=== PATIENT | female | born 1970 | race Caucasian/White ===

== ENCOUNTER 2017-02-28 13:51 | Inpatient (IN) | payer BC ==
[~2017-02-28] VITALS: Ht 165.1 cm; Wt 79.0 kg
--- NOTE | 2017-02-28 16:48 | ERD ---
ER Documentation Chief Complaint Date/Time DATE: 02/28/17 TIME: 16:44 Chief Complaint left leg pain since yesterday HPI Patient is a 46-year-old female who presents to the ED with sudden onset of left leg weakness and numbness. 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 She states that she is able to ambulate but feels weak and "that she's going to trip." States that she feels wobbly in her leg and has difficulty controlling her leg. Denies numbness or tingling in her upper legs. Denies bowel or bladder incontinence. Denies falls or trauma. Denies fever or chills, abdominal pain, chest pain. Denies headache or dizziness. ROS All systems reviewed and are negative except as per history of present illness. PMhx/Soc Medical and Surgical Hx: pt denies Medical Hx History of Surgery: Yes (left breast lumpectomy) Anesthesia Reaction: No Hx Neurological Disorder: No Hx Respiratory Disorders: No Hx Cardiac Disorders: No Hx Psychiatric Problems: No Hx Miscellaneous Medical Probl: No Hx Alcohol Use: No Hx Substance Use: No Hx Tobacco Use: No Smoking Status: Never smoker Physical Exam Vitals Vital Signs Date Time Temp Pulse Resp B/P Pulse Ox O2 Delivery O2 Flow Rate FiO2 02/28/17 13:53 99.2 81 18 167/88 99 Physical Exam GENERAL: Well-developed, well-nourished female. Appears in no acute distress. HEAD: Normocephalic, atraumatic. EYES: Pupils are equally reactive bilaterally. EOMs grossly intact. No conjunctival erythema. ENT: Moist mucous membranes. No uvula deviation. No kissing tonsils. No exudates. NECK: Supple. No lymphadenopathy or thyromegaly. No meningismus. negative kernig. negative brudinski. LUNG: Clear to auscultation bilaterally. No rhonchi, wheezing, rales or coarse breath sounds. HEART: Regular rate and rhythm. No murmurs, rubs or gallops. BACK: No midline tenderness. no spinal tenderness. Extremities: Equal pulses bilaterally. No peripheral clubbing, cyanosis or edema. No unilateral leg swelling. NEUROLOGIC: Alert and oriented. Moving all four extremities. unable to passive dorsiflexion, invert or aaron. Normal speech. unSteady gait. cn 2-12 intact with negative romberg test. no pain in joints. SKIN: Normal color. Warm and dry. No rashes or lesions. Capillary refill < 2 seconds Procedures/MDM ER COURSE: I kept the patient and/or family informed of laboratory and diagnostic imaging results throughout the emergency room course. MEDICAL DECISION MAKING: This is a 46 year old female who presents with left leg pain, numbness and tingling x 2 days. Vital signs were reviewed. Patient is afebrile. Patient is not hypoxic. Patient is not toxic or ill-appearing. I consulted with my supervising physician Dr. Chapin who advised to order an MRI lumbar without contrast. I consulted with my supervising physician Dr. valentino reviewed MRI imaging studies and examine patient at bedside. Neuro surgeon Dr. Valentine was called and reviewed MRI imaging over the phone. Patient will be admitted for further evaluation and consult with neurology. Patient is stable at admission. All questions answered. Departure Diagnosis: Primary Impression: Left leg numbness Additional Impression: Numbness and tingling of leg Condition: Stable ABRIL POWERS PA-C Feb 28, 2017 16:48
--- NOTE | 2017-02-28 17:01 | RADRPT ---
PROCEDURE: MR Lumbar Spine without contrast. CLINICAL INDICATION: Back pain. Left leg pain. Weakness. TECHNIQUE: Multiplanar multisequence MRI of the lumbar spine was performed. COMPARISON: No similar studies are submitted for comparison. FINDINGS: There is a normal lumbar lordosis. The vertebral body heights are maintained. There is no destructive osseous lesion. There is no abnormal bone marrow edema. There are Modic type 2 degenerative changes at L4-5. There is disc desiccation at L4-5 and L5-S1. The conus medullaris is at the L1-L2 level. The cauda equina is unremarkable. T12-L1 : There is no disc herniation or spinal canal stenosis. There is mild bilateral facet arthro liliya without bilateral foraminal stenosis. L1-L2 : There is no disc herniation or spinal canal stenosis. There is mild bilateral facet arthrop athy without bilateral foraminal stenosis. L2-L3 : There is a 1 mm broad-based disc bulge and mild bilateral facet arthropathy and ligamentum f lavum infolding without spinal canal stenosis. There is mild to moderate right with mild left forami nal stenosis. L3-L4 : There is a 1 mm broad-based disc bulge with moderate bilateral facet arthropathy and ligamen mati flavum infolding without spinal canal stenosis. There is mild left with mild to moderate right f oraminal stenosis. L4-L5 : There is moderate to severe disc space narrowing. There is a 3 mm broad-based disc osteophyt e complex with moderate bilateral facet arthropathy and ligamentum flavum infolding mildly effacing the bilateral lateral recesses without spinal canal stenosis.. There is mild to moderate right witho ut left foraminal stenosis. L5-S1 : There is a moderate to severe disc space narrowing. There is trace retrolisthesis with a 3 m m circumferential disc bulge with a superimposed 4 mm left subarticular/foraminal disc protrusion wi th associated annular fissure displacing the descending left S1 nerve root. There is moderate bilate ral facet arthropathy and ligamentum flavum infolding with mild spinal canal stenosis. There is mild to moderate left with moderate right foraminal stenosis. The paraspinal musculature are within normal limits. There is mild endometrial fluid which is nonspe cific. There is also a left ovarian cystic lesion. IMPRESSION: 1. L5-S1 trace retrolisthesis with a circumferential disc bulge with a superimposed 4 mm left subar ticular/foraminal disc protrusion displacing the descending left S1 nerve root. There is mild spinal canal stenosis. There is mild to moderate left and moderate right foraminal stenosis. 2. L4-L5 broad-based disc osteophyte complex with mild to moderate right foraminal stenosis. 3. No acute compression fracture or abnormal bone marrow edema. 4. Mild endometrial fluid which is nonspecific. There is also a left ovarian cystic lesion. Ultrasou nd of the pelvis may be performed as clinically warranted given the patient's age. Further findings as detailed above. RPTAT: PP .Jimmy Bartholomew MD, MD Date Time Electronically viewed and signed by .Jimmy Bartholomew MD, on 02/28/2017 17:00 .F/
[2017-02-28 19:16] LABS: BASOPHIL # 0.1 10^3/ul (0.0-0.1); BASOPHILS % 0.5 % (0.0-2.0); EOSINOPHILS # 0.2 10^3/ul (0.0-0.5); EOSINOPHILS % 1.6 % (0.0-7.0); HEMATOCRIT 39.7 % (37.0-47.0); LYMPHOCYTES # 3.8 10^3/ul (0.8-2.9); LYMPHOCYTES % 33.4 % (15.0-51.0); MEAN CORPUSCULAR HEMOGLOBIN 29.3 pg (29.0-33.0); MEAN CORPUSCULAR HGB CONC 32.7 g/dl (32.0-37.0); MEAN CORPUSCULAR VOLUME 89.6 fl (82.0-101.0); MEAN PLATELET VOLUME 8.9 fl (7.4-10.4); MONOCYTE # 0.5 10^3/ul (0.3-0.9); MONOCYTES % 4.7 % (0.0-11.0); NEUTROPHIL # 6.7 10^3/ul (1.6-7.5); NEUTROPHILS % 59.6 % (39.0-77.0); PLATELET COUNT 416 10^3/UL (140-415); RED BLOOD COUNT 4.43 10^6/ul (4.20-5.40); RED CELL DISTRIBUTION WIDTH 12.9 % (11.5-14.5); WHITE BLOOD COUNT 11.3 10^3/ul (4.8-10.8)
--- NOTE | 2017-02-28 19:17 | EN ---
Date/Time of Note Date/Time of Note DATE: 02/28/17 TIME: 19:16 ER Progress Note I have seen and evaluated the patient along with the PA and/or TUBER [employer]PER provider. I agree with the evaluation and plan of care. Please see their documentation for full ER course and evaluation. In short: This is a 46-year-old female presents with left lower extremity weakness and foot drop On exam: Patient has complete inability to dorsiflex left lower extremity. She walks with an unsteady gait. Assessment and plan: Based on MRI imaging of L5-S1 disc intrusion with impingement I believe this is consistent with acute compressive lumbar radiculopathy. No evidence of cauda equina at this time with the patient does have objective weakness. For this reason Dr. Scott, neurosurgery was notified. He recommends hospitalization. No indication for steroids at this point. He will consult on the patient. Basic blood work has been ordered and the patient will be admitted for further management. Accepting care team and consultations: I discussed the current laboratory data, diagnostic imaging and emergency care provided. Admitting team: Dr. Najera Admitting team indication: Insurance directed Consulting services: Neurosurgery spine, ANABELA Knight MD Feb 28, 2017 19:17
[2017-02-28] MEDS ORDERED: ACETAMINOPHEN 325 MG TAB PO PRN ×2 (19:30→23:30)
[2017-02-28] MEDS ORDERED: ONDANSETRON 4 MG INJ IV PRN ×2 (19:30→23:30)
[2017-02-28 19:36] LABS: CALCIUM 9.4 mg/dl (8.4-10.2); CREATININE 0.68 mg/dl (0.44-1.00); POTASSIUM 3.7 mmol/L (3.5-5.1)
[2017-02-28 20:43] VITALS: PULSE 61; TEMP 98.6
[2017-02-28 21:03] VITALS: BP 140/61; RESP 18
[2017-02-28 21:30] VITALS: Ht 165.1 cm; Wt 79.0 kg
--- NOTE | 2017-02-28 23:23 | HP ---
Date/Time of Note Date/Time of Note DATE: 02/28/17 TIME: 23:21 Assessment/Plan VTE Prophylaxis VTE Prophylaxis Intervention: SCD's Assessment/Plan Chief Complaint/Hosp Course This is a 46 year female being admitted to the [facility] for: #1 left lower extremity weakness and foot drop: MRI of the lumbar spine:L5-S1 trace retrolisthesis with a circumferential disc bulge with a superimposed 4 mm left subarticular/foraminal disc protrusion displacing the descending left S1 nerve root. There is mild spinal canal stenosis. There is mild to moderate left and moderate right foraminal stenosis. L4-L5 broad-based disc osteophyte complex with mild to moderate right foraminal stenosis. At the current time will await neurosurgery evaluation which has been initiated by the ED. Will also consult neurology. No urinary incontinence there are no signs of any cauda equina syndrome. PT and OT evaluation. #2 Left ovarian cyst lesion: Currently at this time patient is not complaining abdomen any pelvic pain. Patient can likely follow-up with as an outpatient #3 DVT and GI prophylaxis: SCDs, acid ama Further treatment strategy will be implemented as per the clinical course Problems: HPI/ROS Admit Date/Time Admit Date/Time Feb 28, 2017 at 22:29 Hx of Present Illness Chief complaint: Left leg weakness and numbness Patient is a 46-year-old female who presents to the ED with sudden onset of left leg weakness and numbness. 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 She states that she is able to ambulate but feels weak and "that she's going to trip." States that she feels wobbly in her leg and has difficulty controlling her leg. Of note patient does report that approximately 3 weeks ago she had experience of low back pain after lifting a heavy object. denies numbness or tingling in the thigh area. Denies bowel or bladder incontinence. Denies falls or trauma. Denies fever or chills, abdominal pain, chest pain. Denies headache or dizziness. Allergies: NKDA Medications: none ROS Const: Negative for fever, chills, weight gain or weight loss, fatigue, or diaphoresis Eyes : No pain discharge or redness or change in visual acuity ENT: No pain, sore throat, congestion, congestion, dysphagia or discharge Respiratory: No shortness of breath, cough, sputum, wheezing, or pleuritic pain Cardiovascular: No chest pain, palpitation, PND, or edema GI : no change in appetite, abdominal pain, nausea, vomiting, diarrhea, constipation, or change in the color his stool Genitourinary: No dysuria, hematuria, flank pain , discharge or CVA tenderness Musculoskeletal: As per HPI Skin: No rash, bruising or hives Neuro: As per HPI Endocrine: No polyuria, polydipsia, temperature intolerance Psych: No hallucination, depression, anxiety or suicidal ideation PMH/Family/Social Past Medical History Left breast mass Past Surgical History Left breast lumpectomy Social History Smoking Status: Never smoker Exam/Review of Systems Vital Signs Vitals Vital Signs Date Time Temp Pulse Resp B/P Pulse Ox O2 Delivery O2 Flow Rate FiO2 02/28/17 20:43 98.6 61 16 128/61 98 Room Air Exam Exam General: Patient is well-developed well-nourished The patient is alert oriented -3 lying comfortably in bed. HEENT: Atraumatic, normocephalic. The pupils are equal, round and reactive. Extraocular motor are intact Neck: Supple with full range of motion. No rigidity or meningismus Chest: Nontender Lungs: Clear to auscultation bilaterally no crackles rales or wheezing Heart: Normal S1-S2, Regular rhythm and rate. No murmur, S3, or S4 Abdomen: Soft , nontender, nondistended , bowel sounds are present. No guarding no rebound tenderness , No masses or organomegaly. No costovertebral temporal angle mass Extremities: Left foot drop Neurologic: Normal mental status, speech normal, cranial nerves II through XII are intact, left foot drop with patient dragging her foot on ambulation, unsteady gait secondary to the left foot drop, left lateral lower leg numbness and decreased sensation left lateral foot decreased sensation Muscular skeletal: There does not appear to be any acute tenderness to the lumbar spinal area however she does have some tenderness to palpation over the left paravertebral muscle area as well as pelvic bone Additional Comments PROCEDURE: MR Lumbar Spine without contrast. CLINICAL INDICATION: Back pain. Left leg pain. Weakness. TECHNIQUE: Multiplanar multisequence MRI of the lumbar spine was performed. COMPARISON: No similar studies are submitted for comparison. FINDINGS: There is a normal lumbar lordosis. The vertebral body heights are maintained. There is no destructive osseous lesion. There is no abnormal bone marrow edema. There are Modic type 2 degenerative changes at L4-5. There is disc desiccation at L4-5 and L5-S1. The conus medullaris is at the L1-L2 level. The cauda equina is unremarkable. T12-L1 : There is no disc herniation or spinal canal stenosis. There is mild bilateral facet arthropathy without bilateral foraminal stenosis. L1-L2 : There is no disc herniation or spinal canal stenosis. There is mild bilateral facet arthropathy without bilateral foraminal stenosis. L2-L3 : There is a 1 mm broad-based disc bulge and mild bilateral facet arthropathy and ligamentum flavum infolding without spinal canal stenosis. There is mild to moderate right with mild left foraminal stenosis. L3-L4 : There is a 1 mm broad-based disc bulge with moderate bilateral facet arthropathy and ligamentum flavum infolding without spinal canal stenosis. There is mild left with mild to moderate right foraminal stenosis. L4-L5 : There is moderate to severe disc space narrowing. There is a 3 mm broad- based disc osteophyte complex with moderate bilateral facet arthropathy and ligamentum flavum infolding mildly effacing the bilateral lateral recesses without spinal canal stenosis.. There is mild to moderate right without left foraminal stenosis. L5-S1 : There is a moderate to severe disc space narrowing. There is trace retrolisthesis with a 3 mm circumferential disc bulge with a superimposed 4 mm left subarticular/foraminal disc protrusion with associated annular fissure displacing the descending left S1 nerve root. There is moderate bilateral facet arthropathy and ligamentum flavum infolding with mild spinal canal stenosis. There is mild to moderate left with moderate right foraminal stenosis. The paraspinal musculature are within normal limits. There is mild endometrial fluid which is nonspecific. There is also a left ovarian cystic lesion. IMPRESSION: 1. L5-S1 trace retrolisthesis with a circumferential disc bulge with a superimposed 4 mm left subarticular/foraminal disc protrusion displacing the descending left S1 nerve root. There is mild spinal canal stenosis. There is mild to moderate left and moderate right foraminal stenosis. 2. L4-L5 broad-based disc osteophyte complex with mild to moderate right foraminal stenosis. 3. No acute compression fracture or abnormal bone marrow edema. 4. Mild endometrial fluid which is nonspecific. There is also a left ovarian cystic lesion. Ultrasound of the pelvis may be performed as clinically warranted given the patient's age. Further findings as detailed above. RPTAT: PP .Jimmy Bartholomew MD, MD Date Time Electronically viewed and signed by .Jimmy Bartholomew MD, MD on 02/28/2017 17:00 .F/ CC: ABRIL POWERS PA-C Labs Result Diagram: 02/28/[id number] BHARATH HERR Feb 28, 2017 23:23
[2017-02-28] MEDS ORDERED: HYDROCODONE/APAP (5/325) TAB PO PRN (23:30)
[2017-02-28] MEDS ORDERED: DOCUSATE SODIUM 100 MG CAP PO PRN (23:30)
[2017-02-28] MEDS ORDERED: BISACODYL (EC) 5 MG TAB PO PRN (23:30)
[2017-02-28] MEDS ORDERED: NACL 0.9% 3 ML SYG IV SCH (23:30)
[2017-02-28] MEDS: FAMOTIDINE 20 MG TAB PO SCH (23:55)
[2017-03-01 02:47] VITALS: BP 123/75; RESP 20
[2017-03-01 05:58] LABS: BASOPHIL # 0.1 10^3/ul (0.0-0.1); BASOPHILS % 0.9 % (0.0-2.0); EOSINOPHILS # 0.2 10^3/ul (0.0-0.5); EOSINOPHILS % 2.4 % (0.0-7.0); HEMATOCRIT 36.2 % (37.0-47.0); HEMOGLOBIN 11.8 g/dl (12.0-16.0); LYMPHOCYTES # 2.9 10^3/ul (0.8-2.9); LYMPHOCYTES % 28.2 % (15.0-51.0); MEAN CORPUSCULAR HEMOGLOBIN 29.3 pg (29.0-33.0); MEAN CORPUSCULAR HGB CONC 32.6 g/dl (32.0-37.0); MEAN CORPUSCULAR VOLUME 89.8 fl (82.0-101.0); MEAN PLATELET VOLUME 9.1 fl (7.4-10.4); MONOCYTE # 0.7 10^3/ul (0.3-0.9); MONOCYTES % 6.5 % (0.0-11.0); NEUTROPHIL # 6.3 10^3/ul (1.6-7.5); NEUTROPHILS % 61.7 % (39.0-77.0); PLATELET COUNT 347 10^3/UL (140-415); RED BLOOD COUNT 4.03 10^6/ul (4.20-5.40); RED CELL DISTRIBUTION WIDTH 13.2 % (11.5-14.5); WHITE BLOOD COUNT 10.2 10^3/ul (4.8-10.8)
[2017-03-01 06:44] LABS: ALBUMIN 3.5 g/dl (3.3-4.9); ALBUMIN/GLOBULIN RATIO 1.06; BILIRUBIN,INDIRECT 2.1 mg/dl (0-1.1); BILIRUBIN,TOTAL 2.1 mg/dl (0.2-1.3); CALCIUM 8.9 mg/dl (8.4-10.2); CHOL/HDL RATIO 2.9 RATIO; CREATININE 0.66 mg/dl (0.44-1.00); MAGNESIUM 1.9 mg/dl (1.7-2.5); POTASSIUM 3.6 mmol/L (3.5-5.1); TOTAL PROTEIN 6.8 g/dl (6.1-8.1)
[2017-03-01 07:09] LABS: THYROID STIMULATING HORMONE 0.919 MIU/L (0.465-4.680)
[2017-03-01 08:01] VITALS: BP 117/64; RESP 17
[2017-03-01] MEDS: FAMOTIDINE 20 MG TAB PO SCH (08:59)
[2017-03-01 14:28] VITALS: BP 103/58; RESP 17
--- NOTE | 2017-03-01 17:03 | PN ---
Date/Time of Note Date/Time of Note DATE: 03/01/17 TIME: 16:55 Assessment/Plan VTE Prophylaxis VTE Prophylaxis Intervention: SCD's Lines/Catheters IV Catheter Type (from Nrsg): Saline Lock Urinary Cath still in place: No Assessment/Plan Assessment/Plan 46 yo F with long hx LBP, intermittent L sided radiculopathy here with acute on chronic radiculopathy 2/2 spinal stenosis cont PT, pain meds neuro and neurosurg to see though no clinical evidence of cord compression at this time Subjective 24 Hr Interval Summary Free Text/Dictation Pt reports problems with her back and L leg since she was 28 years old. Had a period of L leg weakness 10 yrs ago that lasted several mos Exam/Review of Systems Vital Signs Vitals Vital Signs Date Time Temp Pulse Resp B/P Pulse Ox O2 Delivery O2 Flow Rate FiO2 03/01/17 14:28 97.5 62 17 103/58 96 02/28/17 20:43 Room Air Intake and Output 02/28/17 02/28/17 03/01/17 15:00 23:00 07:00 Intake Total 360 ml Balance 360 ml Exam nad pleasant no mrg lungs clear abd soft LLE: sensation decreased to light touch and cold perception along L5 distribution. 5/5 strength in hip, 4/4 in foot and ankle Results Result Diagram: 03/01/17 0515 03/01/17 0514 Results 24 hrs Laboratory Tests Test 02/28/17 19:00 03/01/17 05:14 03/01/17 05:15 White Blood Count 11.3 H 10.2 Red Blood Count 4.43 4.03 L Hemoglobin 13.0 11.8 L Hematocrit 39.7 36.2 L Mean Corpuscular Volume 89.6 89.8 Mean Corpuscular Hemoglobin 29.3 29.3 Mean Corpuscular Hemoglobin Concent 32.7 32.6 Red Cell Distribution Width 12.9 13.2 Platelet Count 416 H 347 Mean Platelet Volume 8.9 9.1 Neutrophils % 59.6 61.7 Lymphocytes % 33.4 28.2 Monocytes % 4.7 6.5 Eosinophils % 1.6 2.4 Basophils % 0.5 0.9 Nucleated Red Blood Cells % 0.0 0.0 Neutrophils # 6.7 6.3 Lymphocytes # 3.8 H 2.9 Monocytes # 0.5 0.7 Eosinophils # 0.2 0.2 Basophils # 0.1 0.1 Nucleated Red Blood Cells # 0.0 0.0 Sodium Level 142 139 Potassium Level 3.7 3.6 Chloride Level 105 107 Carbon Dioxide Level 27 26 Anion Gap 14 10 Blood Urea Nitrogen 9 9 Creatinine 0.68 0.66 Glucose Level 95 86 Calcium Level 9.4 8.9 Hemoglobin A1c 5.2 Magnesium Level 1.9 Total Bilirubin 2.1 H Direct Bilirubin 0.00 Indirect Bilirubin 2.1 H Aspartate Amino Transf (AST/SGOT) 28 Alanine Aminotransferase (ALT/SGPT) 33 Alkaline Phosphatase 63 Total Protein 6.8 Albumin 3.5 Globulin 3.30 H Albumin/Globulin Ratio 1.06 Triglycerides Level 76 Cholesterol Level 128 LDL Cholesterol, Calculated 70 HDL Cholesterol 43 Cholesterol/HDL Ratio 2.9 Thyroid Stimulating Hormone (TSH) 0.919 Medications Medications Current Medications Ondansetron HCl (Zofran Inj) 4 mg Q6H PRN IV NAUSEA AND/OR VOMITING; Start 02/28/17 at 23:30 Acetaminophen (Tylenol Tab) 650 mg Q6H PRN PO PAIN LEVEL 1-3 OR FEVER; Start 02/28/17 at 23:30 Acetaminophen/ Hydrocodone Bitart ([place] (5/325)) 1 tab Q6H PRN PO MODERATE PAIN LEVEL 4-6; Start 02/28/17 at 23:30 Docusate Sodium (Colace) 100 mg Q12H PRN PO CONSTIPATION; Start 02/28/17 at 23: 30 Bisacodyl (Dulcolax) 5 mg DAILY PRN PO CONSTIPATION; Start 02/28/17 at 23:30 Famotidine (Pepcid) 20 mg Q12 PO Last administered on 03/01/17t 08:59; Admin Dose 20 MG; Start 02/28/17 at 23:30 ALEC VALDERRAMA MD Mar 01, 2017 17:03
[2017-03-01 20:00] VITALS: BP 104/68; RESP 18
[2017-03-01] MEDS: predniSONE 20 MG TAB PO SCH (22:39)
--- NOTE | 2017-03-01 23:28 | CONS ---
DATE OF ADMISSION: 02/28/2017 DATE OF CONSULTATION: 03/01/2017 HISTORY OF PRESENT ILLNESS: Patient is a 46-year-old lady with essentially no past medical history, but chronic intermittent low back pain for more than a decade, presented with acute onset of left leg weakness and numbness. The weakness and numbness with associated with pain radiating from the spine to the leg. She developed weakness in movement of the foot and had numbness on the outer surface of the foreleg, as well as the foot. Patient denied any bowel or bladder problems or any problems in other parts of the body. She had MRI of the lumbar spine, which shows L5-S1 retrolisthesis, with circumferential disc bulge, with a superimposed 4-mm left subarticular foraminal disc protrusion displacing descending left S1 nerve root, with mild spinal canal stenosis, mild to moderate left and moderate right foraminal stenosis. Patient here was started on Tylenol and [place]. She feels that her symptoms, which started about 2 days ago, are essentially unchanged, not getting any better or worse. LABORATORY: Show normal comprehensive metabolic panel, TSH. WBC count 10.2 today, hemoglobin 11, hematocrit 36. Normal CBC otherwise. Neurosurgical consult was requested. Patient stated that she had similar episode of weakness but no numbness about 10 years ago that gradually resolved, also including the same leg. ALLERGIES: LATEX. SOCIAL HISTORY: No alcohol, tobacco, or drug use. FAMILY HISTORY: Not contributory. REVIEW OF SYSTEMS: All pertinent positives include the above history of present illness. PHYSICAL EXAMINATION: VITAL SIGNS: Today, 98.5 temperature, pulse 67, 18 respirations, blood pressure 104/68. GENERAL APPEARANCE: Not in acute distress, lying in bed. HEENT: Normocephalic, atraumatic head. NECK: No carotid bruits. No thyromegaly. LUNGS: Clear to auscultation bilaterally. HEART: Normal cardiac rhythm and sounds. ABDOMEN: Soft, nontender. EXTREMITIES: No cyanosis, clubbing, or edema. NEUROLOGIC: She is awake, alert, and oriented x3, with fluent speech. Cranial nerve examination is intact, visual bullock bilaterally. Pupils round, reactive to light from 4-2 mm bilaterally. Extraocular movements intact, without nystagmus. Symmetrical face. Preserved facial strength and sensation. Tongue was in midline. Palate elevates symmetrically. Motor strength examination seemed to be preserved in all extremities, with the exception of left lower extremity, where patient exhibits weakness, about 2 or 3- out of 5 in the left dorsiflexion, eversion and inversion, while plantar flexion is better, about 3+ or 4- out of 5. Rest seemed to be preserved. Sensory examination shows diminution of pinprick in the outer foreleg on the left, as well as the left foot, somewhat more so around the big toe. Deep tendon reflexes 2+ throughout. Downgoing toes bilaterally. Coordination preserved on finger-to- finger testing. No dysmetria or tremor. Gait was not assessed. IMPRESSION AND PLAN: Acute L5-S1, predominantly L5 radiculopathy, probably [id number]. Neurosurgeon to see the patient. I will start her on steroids, maybe 60 mg of prednisone for several day taper. Continue current treatments. Thank you very much for this interesting consultation. Dictated By: Cj Oconnell MD /joselyn/salma /Document#: [id number]
--- NOTE | 2017-03-01 23:28 | CONS ---
Date/Time of Note Date/Time of Note DATE: 03/01/17 TIME: 23:17 Assessment/Plan Assessment/Plan Problems: (1) Lumbar disc disease with radiculopathy Additional Assessment/Plan The patient presents with history and physical exam consistent with L5/ S1 lumbar radiculopathy on the left. MRI shows foraminal stenosis on the left, worst at L5-S1 with displacement of the left S1 nerve root. This is for the most part consistent with the patient's presentation, though some of her complaints are perhaps more classically associated with L5 radiculopathy. I do not think she has a peroneal nerve palsy which is another consideration in her DDx. Overall, I explained to the patient that it is possible that her foot drop would improve with or without surgery, but the presence of a neurologic deficit (as opposed to just pain) is an indication for early surgery. Decompression of the nerve root may allow her to recover function sooner than without intervention. Nevertheless, surgical intervention is not emergent. She has been placed on steroids in the meantime which may ameliorate some of her symptoms pending her decision as to whether or not to proceed with L5-S1 microdiscectomy. Consultation Date/Type/Reason Admit Date/Time Feb 28, 2017 at 22:29 Date of Consultation: Mar 01, 2017 Type of Consultation: neurosurgery Reason for Consultation Left L5-S1 disk herniation Hx of Present Illness 46 year old left handed female presents 3 weeks after acute onset of back pain associated with heavy lifting with two day history of left foot drop, numbness along lateral aspect of left lower leg, and pain radiating from left buttock to dorsum of left foot. She denies any other significant medical history. Social History Smoking Status: Never smoker Exam/Review of Systems Vital Signs Vitals Vital Signs Date Time Temp Pulse Resp B/P Pulse Ox O2 Delivery O2 Flow Rate FiO2 03/01/17 20:00 98.5 67 18 104/68 96 02/28/17 20:43 Room Air Intake and Output 02/28/17 02/28/17 03/01/17 15:00 23:00 07:00 Intake Total 360 ml Balance 360 ml Exam A&O x3 speech fluent and appropriate PERRL, EOMI, Face=, TML Motor RLE 5/5 Q/IP/TA/G/EHL LLE 5/5 Q/IP; 4/5G, 0/5 EHL and TA inversion and eversion intact on right and 0-1/5 on the left + numbness on left lower extremity along lateral aspect of leg and foot Results Result Diagram: 03/01/1715 03/01/1714 Results 24 hrs Laboratory Tests Test 03/01/17 05:14 03/01/17 05:15 Sodium Level 139 Potassium Level 3.6 Chloride Level 107 Carbon Dioxide Level 26 Anion Gap 10 Blood Urea Nitrogen 9 Creatinine 0.66 Glucose Level 86 Hemoglobin A1c 5.2 Calcium Level 8.9 Magnesium Level 1.9 Total Bilirubin 2.1 H Direct Bilirubin 0.00 Indirect Bilirubin 2.1 H Aspartate Amino Transf (AST/SGOT) 28 Alanine Aminotransferase (ALT/SGPT) 33 Alkaline Phosphatase 63 Total Protein 6.8 Albumin 3.5 Globulin 3.30 H Albumin/Globulin Ratio 1.06 Triglycerides Level 76 Cholesterol Level 128 LDL Cholesterol, Calculated 70 HDL Cholesterol 43 Cholesterol/HDL Ratio 2.9 Thyroid Stimulating Hormone (TSH) 0.919 White Blood Count 10.2 Red Blood Count 4.03 L Hemoglobin 11.8 L Hematocrit 36.2 L Mean Corpuscular Volume 89.8 Mean Corpuscular Hemoglobin 29.3 Mean Corpuscular Hemoglobin Concent 32.6 Red Cell Distribution Width 13.2 Platelet Count 347 Mean Platelet Volume 9.1 Neutrophils % 61.7 Lymphocytes % 28.2 Monocytes % 6.5 Eosinophils % 2.4 Basophils % 0.9 Nucleated Red Blood Cells % 0.0 Neutrophils # 6.3 Lymphocytes # 2.9 Monocytes # 0.7 Eosinophils # 0.2 Basophils # 0.1 Nucleated Red Blood Cells # 0.0 Medications Medications Current Medications Ondansetron HCl (Zofran Inj) 4 mg Q6H PRN IV NAUSEA AND/OR VOMITING; Start 02/28/17 at 23:30 Acetaminophen (Tylenol Tab) 650 mg Q6H PRN PO PAIN LEVEL 1-3 OR FEVER; Start 02/28/17 at 23:30 Acetaminophen/ Hydrocodone Bitart ([place] (5/325)) 1 tab Q6H PRN PO MODERATE PAIN LEVEL 4-6; Start 02/28/17 at 23:30 Docusate Sodium (Colace) 100 mg Q12H PRN PO CONSTIPATION; Start 02/28/17 at 23: 30 Bisacodyl (Dulcolax) 5 mg DAILY PRN PO CONSTIPATION; Start 02/28/17 at 23:30 Pantoprazole (Protonix Tab) 40 mg DAILY@06 PO ; Start 03/02/17 at 06:00 Prednisone (Prednisone) 60 mg DAILY PO Last administered on 03/01/17t 22:39; Admin Dose 60 MG; Start 03/01/17 at 22:30; Stop 03/03/17 at 09:01 Prednisone (Prednisone) 40 mg DAILY PO ; Start 03/04/17 at 09:00; Stop 03/06/17 at 09:01 Prednisone (Prednisone) 20 mg DAILY PO ; Start 03/07/17 at 09:00; Stop at 09:01 PRERNA WYATT MD Mar 01, 2017 23:28
[2017-03-02 02:20] VITALS: BP 130/76; RESP 18
[2017-03-02] MEDS: PANTOPRAZOLE (EC) 40 MG TAB PO SCH (05:41)
[2017-03-02 08:06] VITALS: BP 101/55; RESP 18
[2017-03-02] MEDS: predniSONE 20 MG TAB PO SCH (08:20)
--- NOTE | 2017-03-02 12:27 | CONS ---
Date/Time of Note Date/Time of Note DATE: 03/02/17 TIME: 12:24 Consult Date/Type/Reason Admit Date/Time Feb 28, 2017 at 22:29 Initial Consult Date 03/01/17 Type of Consultation: Neurology Reason for Consultation LLE foot drop, pain + weakness Subjective pain improved persistent weakness Objective Vital Signs Date Time Temp Pulse Resp B/P Pulse Ox O2 Delivery O2 Flow Rate FiO2 03/02/17 08:06 98.2 71 18 101/55 97 02/28/17 20:43 Room Air Intake and Output 03/01/17 03/01/17 03/02/17 15:00 23:00 07:00 Intake Total 1320 ml 240 ml Output Total 1450 ml 1300 ml Balance -130 ml -1060 ml Exam awake alert and oriented x3 CN II-XII intact Motor bilateral UE 5/5 LE on the left weakness of dorsiflexion plantarflexion inversion eversion 2/5 Sensory examination shows diminution of pinprick in the outer foreleg on the left, as well as the left foot, somewhat more so around the big toe. Deep tendon reflexes 2+ throughout Downgoing toes bilaterally. Coordination preserved on finger-to- finger testing. No dysmetria or tremor. Gait was not assessed. Results/Medications Result Diagram: 03/01/17 0515 03/01/17 0514 Medications Current Medications Ondansetron HCl (Zofran Inj) 4 mg Q6H PRN IV NAUSEA AND/OR VOMITING; Start 02/28/17 at 23:30 Acetaminophen (Tylenol Tab) 650 mg Q6H PRN PO PAIN LEVEL 1-3 OR FEVER; Start 02/28/17 at 23:30 Acetaminophen/ Hydrocodone Bitart ([place] (5/325)) 1 tab Q6H PRN PO MODERATE PAIN LEVEL 4-6; Start 02/28/17 at 23:30 Docusate Sodium (Colace) 100 mg Q12H PRN PO CONSTIPATION; Start 02/28/17 at 23: 30 Bisacodyl (Dulcolax) 5 mg DAILY PRN PO CONSTIPATION; Start 02/28/17 at 23:30 Pantoprazole (Protonix Tab) 40 mg DAILY@06 PO Last administered on 03/02/17t 05 :41; Admin Dose 40 MG; Start 03/02/17 at 06:00 Prednisone (Prednisone) 60 mg DAILY PO Last administered on 03/02/17t 08:20; Admin Dose 60 MG; Start 03/01/17 at 22:30; Stop 03/03/17 at 09:01 Prednisone (Prednisone) 40 mg DAILY PO ; Start 03/04/17 at 09:00; Stop 03/06/17 at 09:01 Prednisone (Prednisone) 20 mg DAILY PO ; Start 03/07/17 at 09:00; Stop at 09:01 Assessment/Plan Chief Complaint/Hosp Course L5/S1 radiculopathy Steroid taper initiated improved pain neurosurgery following, recommending non-emergent surgical intervention patient is deciding whether or not to proceed with microdiscectomy PT evaluation Problems: SALVADOR SANCHEZ MD Mar 02, 2017 12:27
[2017-03-02 14:04] VITALS: BP 127/66; RESP 18
--- NOTE | 2017-03-02 14:08 | PN ---
Date/Time of Note Date/Time of Note DATE: 03/02/17 TIME: 14:06 Assessment/Plan VTE Prophylaxis VTE Prophylaxis Intervention: SCD's Lines/Catheters IV Catheter Type (from Nrsg): Saline Lock Urinary Cath still in place: No Assessment/Plan Assessment/Plan 46 yo F with long hx LBP, intermittent L sided radiculopathy here with acute on chronic radiculopathy 2/2 spinal stenosis cont PT, pain meds neurosurg considering surgical intervention pending response to conservative management Subjective 24 Hr Interval Summary Free Text/Dictation Pain controlled, foot maybe feeling a little stronger Exam/Review of Systems Vital Signs Vitals Vital Signs Date Time Temp Pulse Resp B/P Pulse Ox O2 Delivery O2 Flow Rate FiO2 03/02/17 14:04 98.4 79 18 127/66 98 02/28/17 20:43 Room Air Intake and Output 03/01/17 03/01/17 03/02/17 15:00 23:00 07:00 Intake Total 1320 ml 240 ml Output Total 1450 ml 1300 ml Balance -130 ml -1060 ml Exam nad no mrg lungs clear abd soft still decreased sensation L5 distribution Results Result Diagram: 03/01/1751403/01/1714 Medications Medications Current Medications Ondansetron HCl (Zofran Inj) 4 mg Q6H PRN IV NAUSEA AND/OR VOMITING; Start 02/28/17 at 23:30 Acetaminophen (Tylenol Tab) 650 mg Q6H PRN PO PAIN LEVEL 1-3 OR FEVER; Start 02/28/17 at 23:30 Acetaminophen/ Hydrocodone Bitart ([place] (5/325)) 1 tab Q6H PRN PO MODERATE PAIN LEVEL 4-6; Start 02/28/17 at 23:30 Docusate Sodium (Colace) 100 mg Q12H PRN PO CONSTIPATION; Start 02/28/17 at 23: 30 Bisacodyl (Dulcolax) 5 mg DAILY PRN PO CONSTIPATION; Start 02/28/17 at 23:30 Pantoprazole (Protonix Tab) 40 mg DAILY@06 PO Last administered on 03/02/17 05 :41; Admin Dose 40 MG; Start 03/02/17 at 06:00 Prednisone (Prednisone) 60 mg DAILY PO Last administered on 03/02/17 08:20; Admin Dose 60 MG; Start 03/01/17 at 22:30; Stop 03/03/17 at 09:01 Prednisone (Prednisone) 40 mg DAILY PO ; Start 03/04/17 at 09:00; Stop 03/06/17 at 09:01 Prednisone (Prednisone) 20 mg DAILY PO ; Start 03/07/17 at 09:00; Stop at 09:01 ALEC VALDERRAMA MD Mar 02, 2017 14:08
[2017-03-02 20:09] VITALS: BP 108/53; RESP 18
[2017-03-03 02:10] VITALS: BP 107/58; RESP 18
[2017-03-03] MEDS: PANTOPRAZOLE (EC) 40 MG TAB PO SCH (06:04)
[2017-03-03 07:49] VITALS: BP 99/51; RESP 18
[2017-03-03] MEDS: predniSONE 20 MG TAB PO SCH (08:11)
[2017-03-03 14:00] VITALS: BP 92/47; RESP 18
--- NOTE | 2017-03-03 14:46 | PN ---
Date/Time of Note Date/Time of Note DATE: 03/03/17 TIME: 14:45 Assessment/Plan VTE Prophylaxis VTE Prophylaxis Intervention: SCD's Lines/Catheters IV Catheter Type (from Nrsg): Saline Lock Urinary Cath still in place: No Assessment/Plan Assessment/Plan 46 yo F with long hx LBP, intermittent L sided radiculopathy here with acute on chronic radiculopathy 2/2 spinal stenosis. Pain improving cont PT, pain meds neurosurg considering surgical intervention pending response to conservative management Subjective 24 Hr Interval Summary Free Text/Dictation reports pain decreasing and tingling decreasing and strength improving Exam/Review of Systems Vital Signs Vitals Vital Signs Date Time Temp Pulse Resp B/P Pulse Ox O2 Delivery O2 Flow Rate FiO2 03/03/17 14:00 98.4 59 18 92/47 100 02/28/17 20:43 Room Air Intake and Output 03/02/17 03/02/17 03/03/17 15:00 23:00 07:00 Intake Total 1760 ml 1100 ml Output Total 1100 ml 1350 ml Balance 660 ml -250 ml Exam nad no mrg lungs clear abd soft increased sensation to L5 dermatome, inc strength in L foot Results Result Diagram: 03/01/17 0515 03/01/17 0514 Medications Medications Current Medications Ondansetron HCl (Zofran Inj) 4 mg Q6H PRN IV NAUSEA AND/OR VOMITING; Start 02/28/17 at 23:30 Acetaminophen (Tylenol Tab) 650 mg Q6H PRN PO PAIN LEVEL 1-3 OR FEVER; Start 02/28/17 at 23:30 Acetaminophen/ Hydrocodone Bitart ([place] (5/325)) 1 tab Q6H PRN PO MODERATE PAIN LEVEL 4-6; Start 02/28/17 at 23:30 Docusate Sodium (Colace) 100 mg Q12H PRN PO CONSTIPATION; Start 02/28/17 at 23: 30 Bisacodyl (Dulcolax) 5 mg DAILY PRN PO CONSTIPATION; Start 02/28/17 at 23:30 Pantoprazole (Protonix Tab) 40 mg DAILY@06 PO Last administered on 03/03/17t 06 :04; Admin Dose 40 MG; Start 03/02/17 at 06:00 Prednisone (Prednisone) 40 mg DAILY PO ; Start 03/04/17 at 09:00; Stop 03/06/17 at 09:01 Prednisone (Prednisone) 20 mg DAILY PO ; Start 03/07/17 at 09:00; Stop at 09:01 ALEC VALDERRAMA MD Mar 03, 2017 14:46
[2017-03-03 15:06] VITALS: BP 131/79
[2017-03-03 21:47] VITALS: BP 137/71; RESP 16
[2017-03-04 03:13] VITALS: BP 106/55; RESP 16
[2017-03-04] MEDS: PANTOPRAZOLE (EC) 40 MG TAB PO SCH (06:17)
[2017-03-04] MEDS: predniSONE 20 MG TAB PO SCH (08:15)
[2017-03-04 08:25] VITALS: BP 137/60; RESP 17
[2017-03-04 15:19] VITALS: BP 121/56; RESP 17
--- NOTE | 2017-03-04 16:24 | PN ---
Date/Time of Note Date/Time of Note DATE: 03/04/17 TIME: 16:21 Assessment/Plan VTE Prophylaxis VTE Prophylaxis Intervention: SCD's Lines/Catheters IV Catheter Type (from Nrsg): Saline Lock Urinary Cath still in place: No Assessment/Plan Assessment/Plan 46 yo F with long hx LBP, intermittent L sided radiculopathy here with acute on chronic radiculopathy 2/2 spinal stenosis. cont PT, pain meds neurosurg considering surgical intervention pending response to conservative management talk to patient tomorrow about discharge? Subjective 24 Hr Interval Summary Free Text/Dictation Pt sleeping at time of my attempted evaluation Exam/Review of Systems Vital Signs Vitals Vital Signs Date Time Temp Pulse Resp B/P Pulse Ox O2 Delivery O2 Flow Rate FiO2 03/04/17 15:19 98.1 71 17 121/56 96 02/28/17 20:43 Room Air Intake and Output 03/03/17 03/03/17 03/04/17 15:00 23:00 07:00 Intake Total 2060 ml 1250 ml Output Total 1950 ml 1450 ml Balance 110 ml -200 ml Exam nad resp nonlabored no abd distension no rashes no edema Results Result Diagram: 03/01/1715 03/01/1714 Medications Medications Current Medications Ondansetron HCl (Zofran Inj) 4 mg Q6H PRN IV NAUSEA AND/OR VOMITING; Start 02/28/17 at 23:30 Acetaminophen (Tylenol Tab) 650 mg Q6H PRN PO PAIN LEVEL 1-3 OR FEVER; Start 02/28/17 at 23:30 Acetaminophen/ Hydrocodone Bitart ([place] (5/325)) 1 tab Q6H PRN PO MODERATE PAIN LEVEL 4-6; Start 02/28/17 at 23:30 Docusate Sodium (Colace) 100 mg Q12H PRN PO CONSTIPATION; Start 02/28/17 at 23: 30 Bisacodyl (Dulcolax) 5 mg DAILY PRN PO CONSTIPATION; Start 02/28/17 at 23:30 Pantoprazole (Protonix Tab) 40 mg DAILY@06 PO Last administered on 03/04/17 06 :17; Admin Dose 40 MG; Start 03/02/17 at 06:00 Prednisone (Prednisone) 40 mg DAILY PO Last administered on 03/04/17 08:15; Admin Dose 40 MG; Start 03/04/17 at 09:00; Stop 03/06/17 at 09:01 Prednisone (Prednisone) 20 mg DAILY PO ; Start 03/07/17 at 09:00; Stop at 09:01 ALEC VALDERRAMA MD Mar 04, 2017 16:24
[2017-03-04 20:00] VITALS: BP 126/61; RESP 20
[2017-03-05 02:00] VITALS: BP 110/59; RESP 20
[2017-03-05] MEDS: PANTOPRAZOLE (EC) 40 MG TAB PO SCH (05:50)
[2017-03-05 08:00] VITALS: BP 129/76; RESP 19
[2017-03-05] MEDS: predniSONE 20 MG TAB PO SCH (09:30)
--- NOTE | 2017-03-05 13:11 | CONS ---
Date/Time of Note Date/Time of Note DATE: 03/05/17 TIME: 13:08 Assessment/Plan Assessment/Plan Chief Complaint/Hosp Course 46 year old left handed female presents 3 weeks after acute onset of back pain associated with heavy lifting with two day history of left foot drop, numbness along lateral aspect of left lower leg, and pain radiating from left buttock to dorsum of left foot. She denies any other significant medical history. Problems: Consultation Date/Type/Reason Admit Date/Time Feb 28, 2017 at 22:29 Initial Consult Date 03/01/17 Type of Consultation: Neurology 24 HR Interval Summary Free Text/Dictation Patient is doing better with regard to pain, she now states taht she no longer has back pain and only complains of pain in the left calf and numbness of the foot. She is now able to ambulate comfortably but with expected high-step gait c /w foot drop. The patient is very reluctant to consider surgery, in spite of having been advised that surgery is likely to speed recovery of her neurologic deficit. She states that 10 years ago she had a foot drop that resolved with conservative treatment after about 18 months. I encouraged her to follow up with me after discharge for further consideration of surgery. Exam/Review of Systems Vital Signs Vitals Vital Signs Date Time Temp Pulse Resp B/P Pulse Ox O2 Delivery O2 Flow Rate FiO2 03/05/17 08:00 98.7 69 19 129/76 97 Intake and Output 03/04/17 03/04/17 03/05/17 15:00 23:00 07:00 Intake Total 1350 ml 720 ml Output Total 900 ml Balance 1350 ml -180 ml Results Result Diagram: 03/01/17 0515 03/01/17 0514 Medications Medications Current Medications Ondansetron HCl (Zofran Inj) 4 mg Q6H PRN IV NAUSEA AND/OR VOMITING; Start 02/28/17 at 23:30 Acetaminophen (Tylenol Tab) 650 mg Q6H PRN PO PAIN LEVEL 1-3 OR FEVER; Start 02/28/17 at 23:30 Acetaminophen/ Hydrocodone Bitart ([place] (5/325)) 1 tab Q6H PRN PO MODERATE PAIN LEVEL 4-6; Start 02/28/17 at 23:30 Docusate Sodium (Colace) 100 mg Q12H PRN PO CONSTIPATION; Start 02/28/17 at 23: 30 Bisacodyl (Dulcolax) 5 mg DAILY PRN PO CONSTIPATION; Start 02/28/17 at 23:30 Pantoprazole (Protonix Tab) 40 mg DAILY@06 PO Last administered on 03/05/17 05 :50; Admin Dose 40 MG; Start 03/02/17 at 06:00 Prednisone (Prednisone) 40 mg DAILY PO Last administered on 03/05/17 09:30; Admin Dose 40 MG; Start 03/04/17 at 09:00; Stop 03/06/17 at 09:01 Prednisone (Prednisone) 20 mg DAILY PO ; Start 03/07/17 at 09:00; Stop at 09:01 PRERNA WYATT MD Mar 05, 2017 13:11
[2017-03-05] MEDS ORDERED: PRED20TA PO (14:17)
--- NOTE | 2017-03-05 14:28 | DS ---
Date/Time of Note Date/Time of Note DATE: 03/05/17 TIME: 14:20 Discharge Summary Admission/Discharge Info Admit Date/Time Feb 28, 2017 at 22:29 Discharge Date/Time Discharge Diagnosis L5/S1 radiculopathy Patient Condition: Stable Consults neurology, neurosurgery Procedures 10.2 LSpine MRI IMPRESSION: 1. L5-S1 trace retrolisthesis with a circumferential disc bulge with a superimposed 4 mm left subarticular/foraminal disc protrusion displacing the descending left S1 nerve root. There is mild spinal canal stenosis. There is mild to moderate left and moderate right foraminal stenosis. 2. L4-L5 broad-based disc osteophyte complex with mild to moderate right foraminal stenosis. 3. No acute compression fracture or abnormal bone marrow edema. 4. Mild endometrial fluid which is nonspecific. There is also a left ovarian cystic lesion. Ultrasound of the pelvis may be performed as clinically warranted given the patient's age. Hx of Present Illness Chief complaint: Left leg weakness and numbness Patient is a 46-year-old female who presents to the ED with sudden onset of left leg weakness and numbness. 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 She states that she is able to ambulate but feels weak and "that she's going to trip." States that she feels wobbly in her leg and has difficulty controlling her leg. Of note patient does report that approximately 3 weeks ago she had experience of low back pain after lifting a heavy object. denies numbness or tingling in the thigh area. Denies bowel or bladder incontinence. Denies falls or trauma. Denies fever or chills, abdominal pain, chest pain. Denies headache or dizziness. Allergies: NKDA Medications: none Hospital Course Pt admitted for L leg pain and weakness consistent with L5/S1 radiculopathy. Pt seen by neurosurgery which advised surgery given neuro deficit. Pt declined surgery. Pt seen by neuro and PT also. Pt started on steroids and pain and functionality gradually improved. Strength not full at discharge but pt again declined surgery. Pt will be discharged with referral for outpatient PT and neurosurg f/u Follow-up Plan PT, neurosurgery Primary Care Provider Lalo Ocasio MD Time spent on discharge: > 30 minutes Copies To: CC: PRERNA WYATT MD, ELLEN MD Mar 05, 2017 14:28
--- NOTE | 2017-03-05 14:37 | PDOCDIS ---
Discharge Instructions DIAGNOSIS Discharge Diagnosis L5/S1 radiculopathy CONDITION Patient Condition: Stable HOME CARE INSTRUCTIONS: Special Diet: regular FOLLOW UP/APPOINTMENTS Follow-up Plan Follow up with physical therapy as advised by the rehabilitation case coordinator Schedule a follow up with the neurosurgeon, Dr Scott within 2 weeks Office Address [address] [place] [id number] Office ALEC VALDERRAMA MD Mar 05, 2017 14:37
[2017-03-07] MEDS ORDERED: predniSONE 20 MG TAB PO SCH (09:00)
== END 2017-03-05 16:15 | disposition home or self-care (01) | DRG 552 ==
LOC: FTE 13:51 → PP2 22:29
PROVIDERS: ADMIT Internal Medicine; ATTEND Internal Medicine
DX: M51.16 Intervertebral disc disorders with radiculopathy, lumbar region (principal); M48.07 Spinal stenosis, lumbosacral region; M21.372 Foot drop, left foot; N83.202 Unspecified ovarian cyst, left side
CPT/HCPCS: 36415; 72148; 80048; 80053; 80061; 83036; 83735; 84443; 85025; 97110; 97116; 97161; 97530; J7512